=== PATIENT | female | born 1945 | race Caucasian/White ===

== ENCOUNTER → 2017-02-19 | Outpatient (CLI) | payer MEDICARE, OTHER ==
--- NOTE | 2017-02-20 10:23 | MM ---
Reason for exam: screening (asymptomatic). Last mammogram was performed 3 years and 1 month ago. History: Patient is postmenopausal. Benign excisional biopsy of the right breast, 1993. Took hormonal contraceptives for 2 years beginning at age 23. Took estrogen for 4 years beginning at age 51. Took progesterone for 4 years beginning at age 51. Physical Findings: A clinical breast exam by your physician is recommended on an annual basis and results should be correlated with mammographic findings. MG 3D Screening Mammo W/Cad Bilateral CC and MLO view(s) were taken. Prior study comparison: February 01, 2014, bilateral MG screening mammo w CAD. January 20, 2013, bilateral digital screening mammo w/CAD. The breast tissue is heterogeneously dense. This may lower the sensitivity of mammography. No significant changes when compared with prior studies. ASSESSMENT: Benign, BI-RAD 2 RECOMMENDATION: Routine screening mammogram of both breasts in 1 year.
== END | disposition home or self-care (01) ==
LOC: RADMAMWWP 10:42
PROVIDERS: ATTEND Internal Medicine
DX: Z12.31 Encounter for screening mammogram for malignant neoplasm of breast (principal)
CPT/HCPCS: 77063; G0202

== ENCOUNTER → 2018-03-18 | Outpatient (CLI) | payer MEDICARE, OTHER ==
--- NOTE | 2018-03-20 10:24 | MM ---
Reason for exam: screening (asymptomatic). Last mammogram was performed 1 year and 1 month ago. History: Patient is postmenopausal. Benign excisional biopsy of the right breast, 1993. Took hormonal contraceptives for 2 years beginning at age 23. Took estrogen for 4 years beginning at age 51. Took progesterone for 4 years beginning at age 51. Physical Findings: A clinical breast exam by your physician is recommended on an annual basis and results should be correlated with mammographic findings. MG Screening Mammo w CAD Bilateral CC and MLO view(s) were taken. Prior study comparison: February 19, 2017, bilateral MG 3d screening mammo w/cad. February 01, 2014, bilateral MG screening mammo w CAD. The breast tissue is heterogeneously dense. This may lower the sensitivity of mammography. No significant changes when compared with prior studies. ASSESSMENT: Negative, BI-RAD 1 RECOMMENDATION: Routine screening mammogram of both breasts in 1 year.
== END | disposition home or self-care (01) ==
LOC: RADMAMWWP 09:48
PROVIDERS: ATTEND Internal Medicine
DX: Z12.31 Encounter for screening mammogram for malignant neoplasm of breast (principal)
CPT/HCPCS: 77067

== ENCOUNTER → 2021-05-02 | Outpatient (CLI) | payer MEDICARE, OTHER ==
--- NOTE | 2021-05-02 15:47 | US ---
EXAMINATION TYPE: US carotid duplex BILAT DATE OF EXAM: 05/02/2021 COMPARISON: NONE CLINICAL HISTORY: 76-year-old female Z82.49 FAM HX ISCHEMIC HEART DISEASE. EXAM MEASUREMENTS: RIGHT: Peak Systolic Velocity (PSV) cm/sec ----- Right CCA: 75.2 ----- Right ICA: 128.0 ----- Right ECA: 85.4 ICA/CCA ratio: 1.7 RIGHT: End Diastole cm/sec ----- Right CCA: 15.5 ----- Right ICA: 24.2 ----- Right ECA: 12.8 LEFT: Peak Systolic Velocity (PSV) cm/sec ----- Left CCA: 81.3 ----- Left ICA: 106.0 ----- Left ECA: 83.8 ICA/CCA ratio: 1.3 LEFT: End Diastole cm/sec ----- Left CCA: 19.8 ----- Left ICA: 30.2 ----- Left ECA: 0.0 VERTEBRALS (direction of flow): Right Vertebral: Antegrade Left Vertebral: Antegrade Rhythm: Normal Mildly elevated velocity: right distal ICA No significant stenosis. IMPRESSION: Minimally elevated peak systolic velocity right ICA at 128 cm/s. The other parameters are within norm al limits. Findings could relate to turbulent flow or a mild, less than 50% stenosis. No hemodynami lois significant ICA stenosis on either side. NASCET criteria was used in interpretation of this exam? Criteria for Assigning % of Stenosis / Diameter reduction (Estimation based on the indirect measurements of the internal carotid artery velocities (ICA PSV). 1. Normal (no stenosis)=ICA PSV < 125 cm/s: ratio < 2.0: ICA EDV<40 cm/s. 2. Less than 50% stenosis=ICA PSV < 125 cm/s: ratio < 2.0: ICA EDV<40 cm/s. 3. 50 to 69% stenosis=ICA PSV of 125 to 230 cm/s: ration 2.0 ? 4.0: ICA EDV 40-100 cm/s. 4. Greater than 70% stenosis to near occlusion= ICA PSV > 230 cm/s: ratio > 4.0: ICA EDV > 100 cm/s. 5. Near occlusion= ICA PSV velocities may be low or undetectable: variable ratio and ICA EDV. 6. Total occlusion=unable to detect flow.
--- NOTE | 2021-05-02 19:03 | BD ---
EXAMINATION TYPE: Axial Bone Density DATE OF EXAM: 05/02/2021 COMPARISON: NONE CLINICAL HISTORY: Postmenopausal screening Height: 62 IN Weight: 98 LBS FRAX RISK QUESTIONS: History of Fracture in Adulthood: RIBS AGE 55 RISK FACTORS HISTORY OF: Active: YES Diet low in dairy products/other sources of calcium: YES Postmenopausal woman: AGE 49 Take estrogen and/or progesterone medications: NOT NOW How long: TOOK FOR 1 YEAR A LONG TIME AGO MEDICATIONS: Osteoporosis Medications: NOT NOW Which medication: Fosamax How Long: TOOK FOSAMAX FOR 2 YEARS A LONG TIME AGO Additional Medications: CALCIUM, VIT D, FISH OIL, VIT B COMPLEX, GLUCOSAMINE, MULTI VIT EXAM MEASUREMENTS: Bone mineral densitometry was performed using the [employer] System. Bone mineral density as measured about the Lumbar spine is: ----- L1-L4(G/cm2): 1.049 T Score Values are as follows: ----- L2: -1.4 ----- L3: -0.9 ----- L4: -0.4 ----- L1-L4: -1.1 Bone mineral density BASELINE Bone mineral density about the R hip (g/cm2): 0.676 Bone mineral density about the L hip (g/cm2): 0.727 T Score values are as follows: -----R Neck: -2.6 -----L Neck: -2.2 -----R Total: -2.4 -----L Total: -2.0 Bone mineral density BASELINE IMPRESSION: Osteoporosis (T Score less than -2.5). There is increased fracture risk and therapy is usually indicated based on age. Re-Screen 1-2 years. NOTE: T-SCORE=SD OF THE YOUNG ADULT MEAN.
--- NOTE | 2021-05-08 12:28 | MM ---
Reason for exam: screening (asymptomatic). Last mammogram was performed 2 years and 1 month ago. History: Patient is postmenopausal. Benign excisional biopsy of the right breast, 1993. Took hormonal contraceptives for 2 years beginning at age 23. Took estrogen for 4 years beginning at age 51. Took progesterone for 4 years beginning at age 51. Physical Findings: A clinical breast exam by your physician is recommended on an annual basis and results should be correlated with mammographic findings. MG Screening Mammo w CAD Bilateral CC and MLO view(s) were taken. Prior study comparison: March 19, 2019, bilateral MG screening mammo w CAD. March 18, 2018, bilateral MG screening mammo w CAD. The breast tissue is heterogeneously dense. This may lower the sensitivity of mammography. No significant changes when compared with prior studies. ASSESSMENT: Benign, BI-RAD 2 RECOMMENDATION: Routine screening mammogram of both breasts in 1 year.
== END | disposition home or self-care (01) ==
LOC: RADMAMWWP 11:29
PROVIDERS: ATTEND Family Medicine
DX: Z12.31 Encounter for screening mammogram for malignant neoplasm of breast (principal); Z00.00 Encounter for general adult medical examination without abnormal findings; M81.0 Age-related osteoporosis without current pathological fracture; Z82.49 Family history of ischemic heart disease and other diseases of the circulatory system
CPT/HCPCS: 77067; 77080; 93880

== ENCOUNTER → 2022-05-03 | Outpatient (CLI) | payer MEDICARE, OTHER ==
--- NOTE | 2022-05-04 07:02 | MM ---
Reason for Exam: Screening (asymptomatic). Last screening mammogram was performed 12 month(s) ago. Patient History: Menarche at age 11. First Full-Term at age 21. Postmenopausal. Estrogen for 4 years from age 51 until age 55. Progesterone for 4 years from age 51 until age 55. Hormonal Contraceptives for 2 years from age 23 until age 25. 1994, Benign Excisional Biopsy on the right side. Risk Values: Viji 5 year model risk: 2.0%. NCI Lifetime model risk: 3.9%. Prior Study Comparison: 03/18/2018 Bilateral Screening Mammogram, [facility]. 03/19/2019 Bilateral Screening Mammogram, [facility]. 05/02/2021 Bilateral Screening Mammogram, [facility]. Tissue Density: The breast tissue is heterogeneously dense. This may lower the sensitivity of mammography. Findings: Analyzed By CAD. Benign appearing vascular calcification bilaterally is redemonstrated. There is no suspicious group of microcalcifications or new suspicious mass in either breast. Overall Assessment: Negative, BI-RAD 1 Management: Screening Mammogram of both breasts in 1 year. Some recommend bilateral ultrasound surveillance in patients with background dense tissue. Clinical breast exam by your physician is recommended on an annual basis and results should be correlated with mammographic findings. Electronically signed and approved by: Sadi Bacon M.D.
== END | disposition home or self-care (01) ==
LOC: RADMAMWWP 09:36
PROVIDERS: ATTEND Family Medicine
DX: Z12.31 Encounter for screening mammogram for malignant neoplasm of breast (principal); Z00.00 Encounter for general adult medical examination without abnormal findings
CPT/HCPCS: 77067

== ENCOUNTER → 2024-06-18 | Outpatient (CLI) | payer MEDICARE, OTHER ==
--- NOTE | 2024-06-22 08:32 | MM ---
Reason for Exam: Screening (asymptomatic). Last screening mammogram was performed 12 month(s) ago. Patient History: Menarche at age 11. First Full-Term at age 21. Postmenopausal. Estrogen for 4 years from age 51 until age 55. Progesterone for 4 years from age 51 until age 55. Hormonal Contraceptives for 2 years from age 23 until age 25. 1994, Benign Excisional Biopsy on the right side. Risk Values: Viji 5 year model risk: 2.0%. NCI Lifetime model risk: 3.3%. Prior Study Comparison: 05/02/2021 Bilateral Screening Mammogram, [facility]. 05/03/2022 Bilateral MG screening mammo w CAD, [facility]. 06/12/2023 Bilateral MG 3D screening mammo w/cad, [facility]. Tissue Density: The breasts are heterogeneously dense, which may obscure small masses. Findings: Analyzed By CAD. There is a loosely grouped calcifications in the central right breast. Spot magnification view recommended. No dominant mass or architectural distortion. Overall Assessment: Incomplete: need additional imaging evaluation, BI-RAD 0 Management: Diagnostic Mammogram of the right breast. . Patient should continue monthly self-breast exams. A clinical breast exam by your physician is recommended on an annual basis. This exam should not preclude additional follow-up of suspicious palpable abnormalities. Note on Viji scores and lifetime risk: 1. A Viji score greater than 3% is considered moderate risk. If this is the case, consider specialist referral to assess eligibility for a risk reducing agent. 2. If overall lifetime risk for the development of breast cancer is 20% or higher, the patient may qualify for future screening with alternating mammogram and breast MRI. [facility], , 06/22/2024 8:30 AM. Electronically signed and approved by: Chao Mukherjee M.D. Radiologis
== END | disposition home or self-care (01) ==
LOC: RADMAMWWP 09:05
PROVIDERS: ATTEND Family Medicine
CPT/HCPCS: 77063; 77067

== ENCOUNTER → 2024-06-26 | Outpatient (CLI) | payer MEDICARE ==
--- NOTE | 2024-06-26 10:28 | MM ---
Reason for Exam: Additional evaluation requested from abnormal screening. Last screening mammogram was performed less than 1 month ago. Patient History: Menarche at age 11. First Full-Term at age 21. Postmenopausal. Estrogen for 4 years from age 51 until age 55. Progesterone for 4 years from age 51 until age 55. Hormonal Contraceptives for 2 years from age 23 until age 25. 1994, Benign Excisional Biopsy on the right side. Risk Values: Viji 5 year model risk: 2.0%. NCI Lifetime model risk: 3.3%. Tissue Density: Right: The breasts are heterogeneously dense, which may obscure small masses. Findings: Analyzed By CAD. The pattern is stable No suspicious calcifications is evident. Some nearby benign vascular calcifications. No suspicious groups of microcalcifications, spiculated or lobular masses, architectural distortion or other secondary signs of malignancy are mammographically apparent. Overall Assessment: Probably benign, BI-RAD 3 Management: Diagnostic Mammogram of the right breast in 6 months. A negative mammogram report should not preclude additional follow up of suspicious palpable abnormalities. Patient should continue monthly self breast exam. A clinical breast exam by your physician is recommended on an annual basis and results should be correlated with mammographic findings. Note on Viji scores and lifetime risk: 1. A Viji score greater than 3% is considered moderate risk. If this is the case, consider specialist referral to assess eligibility for a risk reducing agent. 2. If overall lifetime risk for the development of breast cancer is 20% or higher, the patient may qualify for future screening with alternating mammogram and breast MRI. [facility], , 06/26/2024 10:25 AM. Electronically signed and approved by: Paul Osei D.O. Radiologis
== END | disposition home or self-care (01) ==
LOC: RADMAMWWP 10:05
PROVIDERS: ATTEND Family Medicine
DX: R92.8 Other abnormal and inconclusive findings on diagnostic imaging of breast
CPT/HCPCS: 77061; 77065

== ENCOUNTER → 2024-12-24 | Outpatient (CLI) | payer MEDICARE, OTHER ==
--- NOTE | 2024-12-24 13:36 | MM ---
Reason for Exam: Follow-up at short interval from prior study. Last screening mammogram was performed 6 month(s) ago. Patient History: Menarche at age 11. First Full-Term at age 21. Postmenopausal. Estrogen for 4 years from age 51 until age 55. Progesterone for 4 years from age 51 until age 55. Hormonal Contraceptives for 2 years from age 23 until age 25. 1994, Benign Excisional Biopsy on the right side. Risk Values: Viji 5 year model risk: 2.0%. NCI Lifetime model risk: 3.3%. Prior Study Comparison: 03/19/2019 Bilateral Screening Mammogram, [facility]. 05/02/2021 Bilateral Screening Mammogram, [facility]. 05/03/2022 Bilateral MG screening mammo w CAD, [facility]. 06/12/2023 Bilateral MG 3D screening mammo w/cad, [facility]. 06/18/2024 Bilateral MG 3D screening mammo w/cad, [facility]. 06/26/2024 Right MG 3D work up w/cad RT, [facility]. Tissue Density: Right: The breasts are heterogeneously dense, which may obscure small masses. Findings: Analyzed By CAD. Benign-appearing calcifications. No dominant mass or architectural distortion. Overall Assessment: Benign, BI-RAD 2 Management: Screening Mammogram of both breasts in 6 months. . Results were given to the patient verbally at the time of exam. Patient should continue monthly self-breast exams. A clinical breast exam by your physician is recommended on an annual basis. This exam should not preclude additional follow-up of suspicious palpable abnormalities. Note on Viji scores and lifetime risk: 1. A Viji score greater than 3% is considered moderate risk. If this is the case, consider specialist referral to assess eligibility for a risk reducing agent. 2. If overall lifetime risk for the development of breast cancer is 20% or higher, the patient may qualify for future screening with alternating mammogram and breast MRI. [facility], , 12/24/2024 1:32 PM. Electronically signed and approved by: Chao Mukherjee M.D. Radiologis
== END | disposition home or self-care (01) ==
LOC: RADMAMWWP 13:03
PROVIDERS: ATTEND Family Medicine
DX: R92.8 Other abnormal and inconclusive findings on diagnostic imaging of breast (principal); R92.331 Mammographic heterogeneous density, right breast; Z78.0 Asymptomatic menopausal state; Z92.0 Personal history of contraception
CPT/HCPCS: 77065; G0279; 77061